=== PATIENT | female | born 1945 | race Caucasian/White ===

== ENCOUNTER 2021-03-19 18:29 | Inpatient (IN) | payer BC ==
[~2021-03-19] VITALS: Ht 165.1 cm; Wt 46.3 kg
[2021-03-19] MEDS ORDERED: ACETAMINOPHEN 650 MG/SUPP.RECT RC ONE ×2 (19:00→19:20)
--- NOTE | 2021-03-19 19:03 | NUR ---
Septic work up done - culture done
--- NOTE | 2021-03-19 19:05 | NUR ---
ASSUMED CARE FOR THIS PT. PT AAOX4, PER PT, HAD A SYNCOPAL EPISODE AT HOME, LACERATION NOTED ON HEAD AND ABRASION ON R PERKINS NOTED. PT CONNECTED TO THE ROUGHER OPERATOR AND POX. WILL CONTINUE TO MONITOR PT
--- NOTE | 2021-03-19 19:22 | NUR ---
XRAY AT BEDSIDE
[2021-03-19 19:28] LABS: BASOPHILS % (AUTO) 0.1 % (0.0-2.0); EOSINOPHILS % (AUTO) 0.4 % (0.0-6.0); HEMATOCRIT 34 % (33-45); HEMOGLOBIN 11.3 g/dL (11.5-14.8); LYMPHOCYTES # (AUTO) 0.1 /CMM (0.8-4.8); LYMPHOCYTES % (AUTO) 1.2 % (20.0-44.0); MEAN CORPUSCULAR HGB CONC 33 g/dl (31.0-36.0); MEAN CORPUSCULAR VOLUME 94 fL (82-100); MONOCYTES # (AUTO) 0.2 /CMM (0.1-1.30); NEUTROPHILS # (AUTO) 11.6 /CMM (1.8-8.9); NEUTROPHILS % (AUTO) 96.3 % (43.0-81.0); PLATELET COUNT (AUTO) 188 /CMM (150-450); RED BLOOD CELL COUNT(AUTO) 3.66 MIL/uL (4.0-5.2)
[2021-03-19] MEDS ORDERED: TDAP [DIPH/PERTUSSIS/TET] 0.5 ML VIAL IM ONE ×2 (19:30→19:35)
[2021-03-19 19:47] LABS: ALBUMIN 2.6 g/dL (3.4-5.0); ALKALINE PHOSPHATASE 63 U/L (46-116); BILIRUBIN,TOTAL 0.8 mg/dL (0.2-1.0); CALCIUM, SERUM 8.9 mg/dL (8.5-10.1); CHLORIDE 98 mmol/L (98-107); CREATININE 1.5 mg/dL (0.6-1.3); GLUCOSE 114 mg/dL (74-106); POTASSIUM 4.4 mmol/L (3.5-5.1); SODIUM SERUM 133 mmol/L (136-145); TOTAL PROTEIN, SERUM 6.2 g/dL (6.4-8.2); UREA NITROGEN, BLOOD 47 mg/dL (7-18)
--- NOTE | 2021-03-19 19:49 | NUR ---
RACQUEL (DAUGHTER) CONTACT INFORMATION: [phone]
[2021-03-19 20:13] LABS: MAGNESIUM 2.3 mg/dL (1.8-2.4)
[2021-03-19 20:14] LABS: ALANINE AMINOTRANSFERASE 20 U/L (12-78); ASPARTATE AMINOTRANSFERASE 21 U/L (15-37); BILIRUBIN,DIRECT 0.2 mg/dL (0.0-0.2); CARBON DIOXIDE 20 mmol/L (21-32)
[2021-03-19] MEDS ORDERED: IV NS 0.9% 250 ML IV ONE (20:25)
[2021-03-19] MEDS ORDERED: IOHEXOL-300 100 ML VIAL IV ONE (20:25)
[2021-03-19] MEDS ORDERED: CT SWABBABLE VALVE TRANS SET 1 EA INFUS.SET MC ONE (20:25)
[2021-03-19 20:26] LABS: CREATINE KINASE, TOTAL 242 U/L (26-192)
[2021-03-19] MEDS ORDERED: LEVO50TA8 PO (20:28)
[2021-03-19] MEDS ORDERED: LISD20CA PO (20:28)
[2021-03-19 20:29] LABS: THYROID STIMULATING HORMONE < 0.007 uIU/mL (0.358-3.74)
[2021-03-19] MEDS ORDERED: CEFTRIAXONE 1GM BAG (ER ONLY) 50 ML IV ONE (20:58)
[2021-03-19] MEDS ORDERED: CEFTRIAXONE 1 G in IV D5W 50 ML IV ONE (21:00)
[2021-03-19] MEDS ORDERED: IV NS 0.9% 1,000 ML BAG IV ONE (21:00)
[2021-03-19 21:13] LABS: BILIRUBIN,URINE SMALL (NEGATIVE); COLOR,URINE DARK YELLOW (YELLOW); LEUKOCYTE ESTERASE ,URINE NEGATIVE (NEGATIVE); NITRITE, URINE NEGATIVE (NEGATIVE); PH,URINE 5.5 (5.0-8.0); PROTEIN,URINE 30 mg/dl (NEGATIVE); UGLUCOSE NEGATIVE (NEGATIVE); UROBILINOGEN,URINE 0.2 EU/dL (0.2)
[2021-03-19 21:27] LABS: BACTERIA,URINE Few /HPF (None Seen); MUCUS,URINE Many /LPF (None Seen); SQUAMOUS EPITHELIAL CELL,UR Moderate /HPF (None Seen); URINE AMORPHOUS URATE Moderate /HPF (None Seen)
[2021-03-19] MEDS ORDERED: diphenhydrAMINE HCL 50 MG/ML VIAL IV ONE (22:00)
--- NOTE | 2021-03-19 22:01 | NUR ---
ER SPEAKING TO PT AND REGARDING PLAN OF CARE.
--- NOTE | 2021-03-19 22:13 | NUR ---
DR. REYNOLDS SPEAKING DR. CUENCA REGARDING ADMISSION
--- NOTE | 2021-03-19 22:34 | NUR ---
BED ASSIGNMENT: 119-1
--- NOTE | 2021-03-19 22:49 | NUR ---
REPORT GIVEN TO FERN LIVINGSTON FOR TERESA
--- NOTE | 2021-03-19 22:49 | NUR ---
Christina jiménez in [facility] - 03/19/21 at 2249 by CHINYERE REPORT GIVEN TO FERN FREEMAN TERESA
[2021-03-19 22:56] VITALS: BP 94/58
--- NOTE | 2021-03-19 22:56 | NUR ---
ADMIT NOTE ADMITTED PATIENT FROM ER TO ROOM 119-1 VIA GURNEY. PATIENT IS ALERT AND ORIENTED X4. ABLE TO SPEAK AND UNDERSTAND KYRGYZ. ON ROOM AIR, O2 SAT 97%. RESPIRATIONS EVEN AND UNLABORED, NO SIGNS OF RESPIRATORY DISTRESS. TELE MONITOR ON, SINUS RHYTHM 80'S. SKIN ASSESSMENT DONE, NOTED WITH RIGHT PERKINS ABRASION, LEFT PERKINS SCAB, FOREHEAD LACERATION, RIGHT SHOULDER BRUISE. SACRUM REDNESS, AND RIGHT HIP BRUISE. WITH IV ACCESS ON LEFT FOREARM #18 PATENT AND INTACT. SAFETY MEASURES IMPLEMENTED. BED LOCKED AND IN LOWEST POSITION. SIDE RAILS UP X2. ORIENTED PATIENT TO ROOM AND CALL LIGHT. ALL NEEDS ANTICIPATED.
[2021-03-19] MEDS ORDERED: MAGNESIUM HYDROXIDE 30 ML UDC PO PRN (23:00)
[2021-03-19] MEDS ORDERED: ACETAMINOPHEN 325 MG TABLET PO PRN (23:00)
[2021-03-19] MEDS ORDERED: MAG HYDROX/AL HYDROX/SIMETH 30 ML UDC PO PRN (23:00)
[2021-03-19] MEDS ORDERED: Z GUARD REMEDY 2 OZ OINT TP PRN (23:00)
[2021-03-19] MEDS ORDERED: ONDANSETRON HCL/PF 4 MG/2 ML VIAL IVP PRN (23:00)
[2021-03-19] MEDS ORDERED: HYDROCODONE/APAP 5/325MG TABLET PO PRN (23:00)
[2021-03-19] MEDS ORDERED: ZOLPIDEM TARTRATE 5 MG TABLET PO PRN (23:00)
[2021-03-19] MEDS ORDERED: IV NS 0.9% 1,000 ML IV SCH (23:00)
[2021-03-20] VITALS: BP 90/52
[2021-03-20 04:00] VITALS: BP 136/70
--- NOTE | 2021-03-20 06:57 | NUR ---
RN NOTE PATIENT IS ALERT AND ORIENTED X4. ON ROOM AIR, O2 SAT 100%. RESPIRATIONS EVEN AND UNLABORED, NO SIGNS OF RESPIRATORY DISTRESS. TELE MONITOR ON, SINUS TACHYCARDIA 110'S. WITH IV ACCESS ON LEFT FOREARM #18 PATENT AND INTACT RUNNING NS @75ML/HR. SAFETY MEASURES IMPLEMENTED. BED LOCKED AND IN LOWEST POSITION. SIDE RAILS UP X2. CALL LIGHT WITHIN REACH. WILL ENDORSE TO AM SHIFT.
[2021-03-20] MEDS ORDERED: LEVOTHYROXINE SODIUM 50 MCG TABLET PO SCH (07:00)
[2021-03-20 07:11] LABS: BASOPHILS % (AUTO) 0.1 % (0.0-2.0); HEMATOCRIT 34 % (33-45); HEMOGLOBIN 11.5 g/dL (11.5-14.8); LYMPHOCYTES # (AUTO) 0.1 /CMM (0.8-4.8); LYMPHOCYTES % (AUTO) 1.4 % (20.0-44.0); MEAN CORPUSCULAR HGB CONC 34 g/dl (31.0-36.0); MEAN CORPUSCULAR VOLUME 94 fL (82-100); MONOCYTES # (AUTO) 0.2 /CMM (0.1-1.30); MONOCYTES % (AUTO) 1.8 % (2.0-12.0); NEUTROPHILS # (AUTO) 8.1 /CMM (1.8-8.9); NEUTROPHILS % (AUTO) 95.7 % (43.0-81.0); PLATELET COUNT (AUTO) 186 /CMM (150-450); RED BLOOD CELL COUNT(AUTO) 3.64 MIL/uL (4.0-5.2); WHITE BLOOD COUNT (AUTO) 8.4 K/uL (4.3-11.0)
--- NOTE | 2021-03-20 07:26 | NUR ---
ERP CONSULTANT OPENING NOTES RECEIVED PT AWAKE IN BED IN NO ACUTE SIGNS OF DISTRESS. A/O X4. VERBALLY RESPONSIVE, DENIES PAIN OR ANY DISCOMFORTS AT THIS TIME. ON ROOM AIR, BREATHING EVEN AND UNLABORED, NO SOB NOTED. ON TELE MONITOR WITH CURRENT READING OF ST WITH HR OF 110, NO C/O CARDIAC DISTRESS VOICED AT THIS TIME. LFA G#18 INTACT AND PATENT, IVF OF NS AT 75ML/HR INFUSING WELL, NO S/S OF INFILTRATION NOTED. SAFETY MEASURES IN PLACE: CALL LIGHT WITHIN REACH. BED LOCKED AND IN LOWEST POSITION WITH SIDE RAILS UP X2. BED ALARM ON. WILL CONTINUE TO MONITOR.
[2021-03-20 07:35] LABS: CALCIUM, SERUM 8.4 mg/dL (8.5-10.1); PHOSPHORUS 2.1 mg/dL (2.5-4.9); POTASSIUM 3.7 mmol/L (3.5-5.1)
[2021-03-20 08:00] VITALS: BP 137/78
--- NOTE | 2021-03-20 10:50 | NUR ---
Bakelite Molder consult: manager of environmental services consult requested to discuss plan of care and ensure safety. Patient is a 75-year-old, female. SW met with patient at her bedside in the med-surg unit. Patient was alert and oriented x4. Patient was resting and her , Ivan Gale, was at the bedside. Per chart, patient was brought in by ambulance on 03/19/21 for syncope. Patient stated that she currently lives with her spouse, Ivan Gale, at [address] [place] [id number]; [phone]. Patient stated that she is currently receiving SSI. Patient stated that she is independent with her ADLs. Patient stated that she is ambulatory. SW asked patient what occurred prior to her hospitalization. Patient stated she was having allergies and took Benadryl. Patient stated that she fell due to feeling drowsy from the medication. SW asked patient if she has a history of falls and patient denied history. Patient stated that she regularly visits her PCP, Duong Randle MD, MPH ([address] [place] [address], [address], [place] [address]; ) and plans to visit her PCP once she is discharged. SW asked patient if she has a history of substance use and patient denied. Patient denied history of mental illness. Patient denied suicidal or homicidal ideation. SW offered patient a senior resource guide and New Lifestyles: Guide to Long Term and Care booklet. Patient accepted the resources and thanked SW, stating that she will follow up with the resources as needed. SW discussed discharge plans with the patient and patient stated that she plans to return to her prior living arrangement at home. Patients , Ivan will provide patient with transportation. PLAN: Upon discharge, patient will return to her prior living arrangement at home. No further SS intervention at this time, however, SW will remain available as needed. SENIOR RESOURCES: -Senior Resource Guide- ABUSE PREVENTION: Elder Abuse Hotline (27/04) Adult Protective Services Hotline Long-Term Care [facility] Region Area On Aging (Hotline) ADULT DAY HEALTH CARE CARE CENTERS: Private pay or [facility] funded adult day care [facility] Day Health Care [facility] , [facility] , [facility] Adult Care Center , [facility] Day Health Care , [facility] Day Health Care , [facility] Adult [facility] , [place] [facility] , [place] [facility] , [facility] ASSOCIATIONS: AARP www.aarp.org ALS Association (ask for Aydi) www.als.org [place] Diabetes Association www.diabetes.org [place] Heart Association www.heart.org [place] Lung Association www.lungusa.org [place] Parkinson Disease Association www.apdaparkinson.org [place] , www.redcross.org Arthritis Foundation www.arthritis.org Crohns & Colitis Foundation of [place] www.ccfa.org/chapters/andria National Multiple Sclerosis Society www.nationalmssociety.org Myasthenia Gravis Foundation www.myasthenia-ca.org National Stroke Association www.stroke.org CONSERVATORSHIP & GUARDIANSHIP: AARP Lulu Collazo Legal Services Center for Health Care Rights Eldercare Information and Referral Prison Teacher Foundation [facility]: [facility] Referral Service [facility] Legal Services Office of the Public Guardian [place] GRIEF AND BEREAVEMENT RESOURCES: [facility] [place] , [facility] , [facility] , [place] HELP AT HOME CAREGIVER SUPPORT: In Home Support Services (Must have Medi-Sohan to be eligible) *Ask for a list of agencies that provide services to assist with care in the home. Local Senior Centers also have listings of care providers. HOME SAFETY MODIFICATIONS AND EQUIPMENT: Senior centers have additional referrals. [place] Profista and Community Investment Dept. Handyworker Program (low income) or Visit http://hcidla.[facility].org/pmv-okthpb-jw for more information National Seating and Mobility and/or ; Forever Active www.foreveractivemed.Centre for Sight Stay Home Safe www.Stayhomesafe.com LIFE ALERT RESPONSE SYSTEM: [employer] Lifeline Services 260-538-6910 www. Premier Diagnostics.Centre for Sight Life Alert 917-340-2692 www.lifemSilicart.Centre for Sight Life Station 343-206-7918 www.lifestation.com Safe Return 471-164-5594 www.alz.or/safereturn Cell Phones for Seniors www.MovieSet MEALS AND FOOD PROGRAMS: [place] Meals on Wheels [phone] [place] Meals on Wheels [phone] [facility] [phone] [place] to the Homebound [phone] [place] to the Homebound [phone] [facility] to the Homebound [phone] [facility] to the Homebound [phone] [place] [phone] [facility] [phone] ONE Generation [phone] [facility] [phone] [facility] [phone] Meals on Wheels [phone] For all ages: $6.85/ meal w side. Delivered M-F from 10 am-1pm. Application and payment is done over the phone. Frozen meals available for weekends. [facility] Food [facility] [phone] [facility] Bakelite Molder [phone] [facility] [phone] [facility]- Brown bag lunches [phone] [facility] [phone] MEAL/GROCERY DELIVERY PROGRAMS: [facility] Gourmet Meals [phone]- [facility] [phone]- [facility] Magic Kitchen [phone] Moms Meals [phone] (ask Senior for Discount Select grocery stores may provide delivery. MEDICAL INSURANCE SUPPORT SERVICES: Center for Health Care Rights [phone] Health Insurance Counseling/Advocacy Programs (HICAP)-Must have Medicare. Offers counseling for Medi-Sohan eligibility [phone] Department of Public Bakelite Molder [phone] www.[facility].ca.gov Medicare 836-119-4271 www.socialsecurity.org Social Security [phone] SENIOR ACTIVITY PROGRAMS: *Contact a local senior center, adult school, recreation facility or community college for education, fitness, recreation, and social programs. Aquatic Therapy and Adapted Exercise programs through [facility] [phone] Encore at [facility] [phone] www.[facility]/encore H2U- Senior Friends [phone] [place] [facility] Programs 392-653-3366 www.oasisnet.org Suddenly 65 www.krnuxwpf36.com SENIOR CENTERS: [facility] [phone] [facility] [phone] [facility] [phone] [place] [address] [facility] [phone] [facility] [phone] [facility] [phone] [facility] [phone] One GenerationJojo [facility] [phone] [facility] [phone] [facility] [phone] [facility] [phone] [facility] [phone] TRANSPORTATION: Local [facility] may have applications for transportation programs and additional resources. ACCESS Services [phone] Transportation for seniors and disabled persons 7 days a week requiring 254 hr. advance reservation. Must apply and register for program to be eligible. [employer] [phone] or [phone] Transportation for seniors and persons with ADA card/metro disabled card in the [facility]. M-F only. Must register for services. ONE GENERATION [phone] Serves 65 years + in conjunction with [employer] program. Must be registered with both programs. A to B Transport [phone] Provides wheelchair/gurney van service. TRANSPORTATION CONTINUED: Adult Medical Transport [phone] Accepts Medi-sohan with prior authorization. Care Van [phone] Provides wheelchair Transport. [facility] Wide Transportation [phone] Provides gurney service [facility] [phone] Gurney Transport. [facility] Transportation [phone] wheelchair & gurney transport [facility] Transportation [phone] wheelchair & gurney transport [place] Non-Emergency Transport [phone] wheelchair & gurney transport [facility] Living Barnard [phone] (Short Term Transportation primarily for adults with disabilities on social security income. Nominal fee may apply and a reservation is required.) [employer] [phone] or [phone] [employer] [phone] [place] [address] Services -[phone] For additional programs & services
[2021-03-20] MEDS ORDERED: IV NS 0.9% 1,000 ML IV PRN (11:30)
[2021-03-20] MEDS ORDERED: K PHOS NEUTRAL 250 MG TABLET PO ONE (12:00)
[2021-03-20 12:30] VITALS: BP 137/78
--- NOTE | 2021-03-20 14:20 | NUR ---
PATIENT REFUSED TO HAVE DISCHARGE PHOTO TAKEN.
[2021-03-20] MEDS ORDERED: CEPH500C2 PO (14:22)
--- NOTE | 2021-03-20 15:15 | NUR ---
RN DISCHARGED NOTES PT DISCHARGED HOME IN STABLE CONDITION A/ O X4, ABLE TO MAKE NEEDS KNOWN. V/S TAKEN , STABLE AND RECORDED. PHOTO OF SKIN ISSUES TAKEN LAST NIGHT. ALL BELONGINGS ACCOUNTED FOR AND SIGNED FORM. IV ACCESS REMOVED WITH NO BLEEDING NOTED, DRY DRESSING APPLIED TO SITE. NAME ARMBAND REMOVED. HEALTH TEACHINGS/DISCHARGED INSTRUCTIONS GIVEN TO PT AND , BOTH VERBALIZED UNDERSTANDING. PT LEFT UNIT AT 1505 VIA WHEELCHAIR ACCOMPANIED BY MIKI MCNALLY AND PT'S TO LOBBY. MD AND CN AWARE OF DISCHARGE.
== END 2021-03-20 17:15 | disposition home or self-care (01) | DRG 871 ==
LOC: ER 18:39 → TELE1 22:35
PROVIDERS: ADMIT Family Medicine; ATTEND Nurse Practitioner Acute Care
DX: A41.9 Sepsis, unspecified organism (principal); N17.0 Acute kidney failure with tubular necrosis; N39.0 Urinary tract infection, site not specified; E44.0 Moderate protein-calorie malnutrition; E87.1 Hypo-osmolality and hyponatremia; J98.11 Atelectasis; E87.2 Acidosis; E86.0 Dehydration; F32.9 Major depressive disorder, single episode, unspecified; M47.9 Spondylosis, unspecified; M48.02 Spinal stenosis, cervical region; E89.0 Postprocedural hypothyroidism; F90.9 Attention-deficit hyperactivity disorder, unspecified type; L29.9 Pruritus, unspecified; Z79.890 Hormone replacement therapy; Z79.899 Other long term (current) drug therapy; D63.8 Anemia in other chronic diseases classified elsewhere; E86.1 Hypovolemia; R19.00 Intra-abdominal and pelvic swelling, mass and lump, unspecified site; Z72.0 Tobacco use; B96.89 Other specified bacterial agents as the cause of diseases classified elsewhere; W18.30XA Fall on same level, unspecified, initial encounter; Y92.007 Garden or yard of unspecified non-institutional (private) residence as the place of occurrence of the external cause
CPT/HCPCS: 36415; 70450-TC; 71045-TC; 72125-TC; 80048-TC; 80061-TC; 80076-TC; 81001; 82550-TC; 82553; 83605-TC; 83735-TC; 84100-TC; 84439-TC; 84443-TC; 84484-TC; 85025-TC; 85730-TC; 87040-TC; 87081-TC; 87086-TC; 90715; 93307-TC; 93880-TC; C9803; G0378; J0696; J1200; J7030; J7040; J7050; J7060; Q9967